=== PATIENT | male | born 1930 | race Caucasian/White ===

== ENCOUNTER 2019-10-05 10:25 | Inpatient (IN) | payer MEDICARE, OTHER ==
[2019-10-03 11:54] LABS: BASOPHILS # (AUTO) 0.03 x10^3/uL (0-0.1); BASOPHILS % (AUTO) 0 % (0-1); EOSINOPHILS # (AUTO) 0.15 x10^3/uL (0-0.4); EOSINOPHILS % (AUTO) 2 % (1-7); LYMPHOCYTES # (AUTO) 1.26 x10^3/uL (1-3.4); LYMPHOCYTES % (AUTO) 14 % (22-44); MD NO; MEAN CORPUSCULAR HEMOGLOBIN 25.6 pg (27.5-34.5); MEAN CORPUSCULAR HGB CONC 32.3 g/dL (33.2-36.2); MEAN CORPUSCULAR VOLUME 79.2 fL (81-97); MEAN PLATELET VOLUME 6.7 fL (7.4-10.4); MONOCYTES # (AUTO) 0.83 x10^3/uL (0.2-0.8); MONOCYTES % (AUTO) 9 % (2-9); NEUTROPHILS # (AUTO) 6.77 x10^3/uL (1.8-6.8); NEUTROPHILS % (AUTO) 75 % (42-75); PLATELET COUNT 333 x10^3/uL (130-400); RED BLOOD COUNT 4.33 x10^6/uL (4.38-5.82); RED CELL DISTRIBUTION WIDTH 15.1 % (9.4-14.8)
[2019-10-03 12:00] LABS: ALBUMIN 3.2 g/dL (3.4-5.0); ANION GAP 7 mmol/L (5-15); CALCIUM 8.8 mg/dL (8.5-10.1); CHLORIDE 108 mmol/L (98-107)
[2019-10-03 12:03] LABS: ALANINE AMINOTRANSFERASE 16 U/L (12-78); ALKALINE PHOSPHATASE 82 U/L (45-117); BILIRUBIN,TOTAL 0.5 mg/dL (0.2-1.0); CREATININE 1.27 mg/dL (0.7-1.3); TOTAL PROTEIN 6.7 g/dL (6.4-8.2)
[~2019-10-05] VITALS: Ht 182.9 cm; Wt 96.0 kg
[~2019-10-05 10:25] MED LIST: ATEN50TA41 PO; CHOL10002 PO; DOXA4TAB2 PO; ECOTRIN PO; FINA5TAB PO; GUAR1PAC2 PO; LISI-167 PO; MULT-642 PO; OMEG300C PO; OMEP40CA42 PO; VIT1TABL32 PO; VITA1CAP PO
[2019-10-05] MEDS ORDERED: CHLORHEXIDINE 15 ML UDC MM ONE (12:00)
[2019-10-05] MEDS ORDERED: LACTATED RINGERS 1,000 ML IV SCH (12:05)
[2019-10-05] MEDS ORDERED: BUPIVACAINE/PF-EPI 0.5% 1:200K ONE (13:47)
[2019-10-05] MEDS ORDERED: FENTANYL PF 250 MCG/5ML ONE (13:51)
[2019-10-05] MEDS ORDERED: ALBUTEROL SULFATE 2.5 MG/3 ML NPPB PRN (15:00)
[2019-10-05] MEDS ORDERED: PROMETHAZINE 25 MG/ML, 1ML IV PRN (15:00)
[2019-10-05] MEDS ORDERED: FENTANYL PF 100 MCG/2ML IV PRN (15:00)
[2019-10-05] MEDS ORDERED: HYDROmorphone 2 MG/ML, 1ML IVPush PRN (15:00)
[2019-10-05] MEDS ORDERED: OXYcodone 5 MG/5 ML ORAL.SOL UDC PO PRN (15:00)
[2019-10-05] MEDS ORDERED: LABETALOL 5MG/ML, 20ML IV PRN (15:00)
[2019-10-05] MEDS ORDERED: hydrALAzine 20 MG/ML, 1ML IV PRN (15:00)
[2019-10-05] MEDS ORDERED: HALOPERIDOL 5 MG/ML IV PRN (15:00)
[2019-10-05] MEDS ORDERED: INDOCYANINE GREEN 25 MG VIAL ONE (15:17)
[2019-10-05] MEDS ORDERED: OXYcodone 5 MG/5 ML ORAL.SOL UDC ONE (16:41)
[2019-10-05] MEDS: LACTATED RINGERS 1,000 ML IV SCH (17:40)
[2019-10-05 17:45] VITALS: BP 122/70
[2019-10-05] MEDS ORDERED: SCOPOLAMINE 1MG PATCH TD PRN (18:00)
[2019-10-05] MEDS ORDERED: ONDANSETRON 2MG/ML, 2ML IV PRN (18:00)
[2019-10-05] MEDS ORDERED: LORazepam 2 MG/ML, 1ML IVPush PRN (18:00)
[2019-10-05] MEDS ORDERED: TRAZODONE 50MG TABLET PO PRN (18:00)
[2019-10-05] MEDS ORDERED: OXYcodone IR 5MG TABLET PO PRN (18:00)
[2019-10-05] MEDS ORDERED: DEXAMETHASONE 4 MG/ML, 1ML IVPush PRN (18:00)
[2019-10-05] MEDS ORDERED: LORazepam 1MG TABLET PO PRN (18:00)
[2019-10-05] MEDS ORDERED: DIPHENHYDRAMINE 50 MG/ML, 1ML IVPush PRN (18:00)
[2019-10-05] MEDS ORDERED: CALCIUM CARBONATE 500 MG TAB.CHEW PO PRN (18:00)
[2019-10-05] MEDS ORDERED: MORPHINE SULFATE 4 MG/ML, 1ML IVPush PRN (18:00)
[2019-10-05] MEDS ORDERED: HALOPERIDOL 5 MG/ML IVPush PRN (18:00)
[2019-10-05] MEDS ORDERED: DIPHENHYDRAMINE 25 MG CAPSULE PO PRN (18:00)
[2019-10-05] MEDS: ACETAMINOPHEN 500 MG TABLET PO SCH (18:57)
[2019-10-05 19:29] VITALS: BP 107/68
[2019-10-05] MEDS: DOXAZOSIN 2MG TABLET PO SCH (20:27)
[2019-10-05] MEDS: FINASTERIDE 5 MG TABLET PO SCH (20:27)
[2019-10-05] MEDS: LISINOPRIL 10 MG TABLET PO SCH (20:27)
[2019-10-06] VITALS (8 sets, daily range): BP systolic 99–127; BP diastolic 59–73
[2019-10-06] MEDS: ACETAMINOPHEN 500 MG TABLET PO SCH ×4 (00:04→17:27)
[2019-10-06 03:15] LABS: BASOPHILS # (AUTO) 0.02 x10^3/uL (0-0.1); BASOPHILS % (AUTO) 0 % (0-1); EOSINOPHILS # (AUTO) 0.01 x10^3/uL (0-0.4); EOSINOPHILS % (AUTO) 0 % (1-7); LYMPHOCYTES # (AUTO) 0.62 x10^3/uL (1-3.4); LYMPHOCYTES % (AUTO) 8 % (22-44); MD NO; MEAN CORPUSCULAR HEMOGLOBIN 25.3 pg (27.5-34.5); MEAN CORPUSCULAR VOLUME 79.1 fL (81-97); MEAN PLATELET VOLUME 6.7 fL (7.4-10.4); MONOCYTES # (AUTO) 0.57 x10^3/uL (0.2-0.8); MONOCYTES % (AUTO) 7 % (2-9); NEUTROPHILS % (AUTO) 84 % (42-75); PLATELET COUNT 284 x10^3/uL (130-400); RED BLOOD COUNT 3.99 x10^6/uL (4.38-5.82); RED CELL DISTRIBUTION WIDTH 14.1 % (9.4-14.8)
[2019-10-06 03:30] LABS: ANION GAP 7 mmol/L (5-15); CALCIUM 8.6 mg/dL (8.5-10.1); CHLORIDE 109 mmol/L (98-107)
[2019-10-06 03:31] LABS: CREATININE 1.49 mg/dL (0.7-1.3)
[2019-10-06] MEDS: OMEPRAZOLE 20 MG CAPSULE.DR PO SCH (05:52)
[2019-10-06] MEDS: ENOXAPARIN 40 MG/0.4 ML SQ SCH (10:43)
[2019-10-06] MEDS: LACTATED RINGERS 1,000 ML IV SCH (14:00)
[2019-10-06] MEDS: LISINOPRIL 10 MG TABLET PO SCH (20:30)
[2019-10-06] MEDS: DOXAZOSIN 2MG TABLET PO SCH (20:30)
[2019-10-06] MEDS: FINASTERIDE 5 MG TABLET PO SCH (20:51)
[2019-10-07] MEDS: ACETAMINOPHEN 500 MG TABLET PO SCH ×3 (00:07→11:50)
[2019-10-07 01:27] VITALS: BP 108/54
[2019-10-07 03:04] LABS: BASOPHILS # (AUTO) 0.04 x10^3/uL (0-0.1); BASOPHILS % (AUTO) 1 % (0-1); EOSINOPHILS # (AUTO) 0.19 x10^3/uL (0-0.4); EOSINOPHILS % (AUTO) 2 % (1-7); LYMPHOCYTES # (AUTO) 1.33 x10^3/uL (1-3.4); LYMPHOCYTES % (AUTO) 16 % (22-44); MD NO; MEAN CORPUSCULAR HGB CONC 32.2 g/dL (33.2-36.2); MEAN CORPUSCULAR VOLUME 77.8 fL (81-97); MEAN PLATELET VOLUME 6.8 fL (7.4-10.4); MONOCYTES # (AUTO) 0.86 x10^3/uL (0.2-0.8); MONOCYTES % (AUTO) 11 % (2-9); NEUTROPHILS # (AUTO) 5.79 x10^3/uL (1.8-6.8); NEUTROPHILS % (AUTO) 71 % (42-75); PLATELET COUNT 282 x10^3/uL (130-400); RED CELL DISTRIBUTION WIDTH 14.9 % (9.4-14.8)
[2019-10-07 03:17] LABS: ANION GAP 5 mmol/L (5-15); CALCIUM 8.6 mg/dL (8.5-10.1); CHLORIDE 109 mmol/L (98-107); CREATININE 1.31 mg/dL (0.7-1.3)
[2019-10-07] MEDS: OMEPRAZOLE 20 MG CAPSULE.DR PO SCH (06:19)
[2019-10-07 07:37] VITALS: BP 100/60
[2019-10-07] MEDS: ENOXAPARIN 40 MG/0.4 ML SQ SCH (09:58)
[2019-10-07] MEDS: LACTATED RINGERS 1,000 ML IV SCH (09:58)
[2019-10-07] MEDS ORDERED: TRAM-47 PO (11:03)
== END 2019-10-07 12:07 | disposition home or self-care (01) | DRG 331 ==
LOC: ORIP 11:11 → 4NE 17:38
PROVIDERS: ADMIT Colon & Rectal Surgery; ATTEND Colon & Rectal Surgery
PROC: 8E0W4CZ Robotic Assisted Procedure of Trunk Region, Percutaneous Endoscopic Approach (ICD-10-PCS; 2019-10-05)
PROC: 0DTF4ZZ Resection of Right Large Intestine, Percutaneous Endoscopic Approach (ICD-10-PCS; principal; 2019-10-05 13:00)
DX: C18.2 Malignant neoplasm of ascending colon (principal); I25.10 Atherosclerotic heart disease of native coronary artery without angina pectoris; Z88.1 Allergy status to other antibiotic agents; Z79.899 Other long term (current) drug therapy
CPT/HCPCS: 36415; 80048; 80053; 83735; 85025; 86850; 86900; 88309; 93005; G0378; J1650; J3010; J7120